=== PATIENT | female | born 1965 | race Caucasian/White ===

== ENCOUNTER 2019-04-09 09:11 | Inpatient (IN) | payer MEDICAID ==
[~2019-04-09] VITALS: Ht 162.6 cm; Wt 117.3 kg
[~2019-04-09 09:11] MED LIST: HYDR-4353 PO
[2019-04-09 10:04] LABS: BASOPHILS # (AUTO) 0.1 X10'3 (0-0.2); BASOPHILS % (AUTO) 0.6 % (0-1); EOSINOPHILS # (AUTO) 0.1 X10'3 (0-0.9); EOSINOPHILS % (AUTO) 0.4 % (0-6); HEMATOCRIT 45.5 % (35.0-45.0); HEMOGLOBIN 15.6 g/dl (12.0-16.0); LYMPHOCYTES # (AUTO) 2.2 X10'3 (1.1-4.8); LYMPHOCYTES % (AUTO) 13.4 % (21-51); MEAN CORPUSCULAR HGB CONC 34.3 g/dL (33.0-36.5); MEAN PLATELET VOLUME 8.1 FL (7.4-10.4); MONOCYTES # (AUTO) 1.3 X10'3 (0-0.9); MONOCYTES % (AUTO) 7.7 % (2-12); NEUTROPHILS % (AUTO) 77.9 % (42-75); PLATELET COUNT 239 X10'3 (140-440); RED BLOOD COUNT 4.74 X10'6 (4.20-5.60); RED CELL DISTRIBUTION WIDTH 13.4 % (11.5-14.5); WHITE BLOOD COUNT 16.6 X10'3 (4.5-11.0)
[2019-04-09 10:20] LABS: ALANINE AMINOTRANSFERASE 23 U/L (12-78); ALBUMIN 3.5 G/DL (3.4-5.0); ALBUMIN/GLOBULIN RATIO 0.8 (1.1-1.5); ALKALINE PHOSPHATASE 72 IU/L (46-116); AMYLASE 53 U/L (25-115); ANION GAP 12 (8-16); ASPARTATE AMINO TRANSFERASE 14 U/L (10-37); BILIRUBIN,TOTAL 0.8 MG/DL (0.1-1.0); BLOOD UREA NITROGEN 8 MG/DL (7-18); BUN/CREATININE RATIO 8.9 (6.6-38.0); CALCIUM 9.6 MG/DL (8.5-10.1); CHLORIDE 101 MMOL/L (99-107); GLUCOSE 110 MG/DL (70-104); LIPASE 143 U/L (73-393); POTASSIUM 3.4 MMOL/L (3.5-5.1); SODIUM 136 MMOL/L (135-145); TOTAL CARBON DIOXIDE 22.7 MMOL/L (24-32); TOTAL PROTEIN 8.1 G/DL (6.4-8.2); eGFR 66 ML/MIN
[2019-04-09] MEDS ORDERED: morphine 4 MG/ML inj SYRINge IV ONE ×2 (10:20→11:40)
[2019-04-09] MEDS ORDERED: ringers solution, lacted 1,000 ML IV ONE (10:35)
[2019-04-09 10:36] LABS: PARTIAL THROMBOPLASTIN TIME 32 SECONDS (22-32)
[2019-04-09] MEDS ORDERED: iohexol 300mg/ml 100ml inj. ONE (11:12)
--- NOTE | 2019-04-09 11:22 | NUR ---
Assumed care of pt. Awaiting CT results. VSS. Will continue to monitor.
[2019-04-09 12:01] LABS: CLARITY,URINE SLIGHTLY CLOUDY (Clear); GLUCOSE, URINE NEGATIVE (Neg); KETONES,URINE 40 mg/dl (Neg); LEUKOCYTE ESTERASE ,URINE NEGATIVE (Neg); NITRITES, URINE NEGATIVE (Neg); OCCULT BLOOD,URINE TRACE-LYSED (Neg); PH,URINE 5.5 (4.8-8.0); PROTEIN,URINE 30 mg/dl (Neg)
[2019-04-09 12:02] LABS: COLOR,URINE AMBER (Yellow); UA COLLECTION TYPE CLN CATCH MIDSTREAM
[2019-04-09 12:08] LABS: BACTERIA,URINE FEW /HPF (Neg); RBC,URINE 0-2 /HPF (0-2); WBC,URINE 0-4 /HPF (0-4)
[2019-04-09 12:09] LABS: AMORPHOUS URATES 1+; FINE GRANULAR CAST 0-3 /LPF (NEGATIVE); HYALINE CASTS 0-3 /LPF (NEGATIVE); MUCUS STRANDS MANY /LPF (Neg); SQUAMOUS EPITHELIAL CELL,UR FEW /LPF (FEW)
[2019-04-09] MEDS ORDERED: nitroGLYCERIN 0.4mg SUBLingual tab SL PRN (12:30)
[2019-04-09] MEDS ORDERED: piperacillin/tazo 3.375gm/50ml 50 ML IV ONE (12:55)
[2019-04-09] MEDS ORDERED: acetaminophen 325mg tablet PO PRN ×2 (13:50)
[2019-04-09] MEDS ORDERED: magnesium hydroxide 30ml (MOM) UD suspension PO PRN (13:50)
[2019-04-09] MEDS ORDERED: mag hydrox/Alum hydrox/simeth 30ml oral suspension PO PRN (13:50)
[2019-04-09] MEDS ORDERED: morphine 2 MG/ML inj. syringe IV PRN ×2 (13:50)
[2019-04-09] MEDS ORDERED: HYDROcodone/acetaminophen 5mg/325mg tablet PO PRN (13:50)
[2019-04-09] MEDS: normal saline 1000ml 1,000 ML IV SCH ×2 (14:08→23:49)
[2019-04-09] MEDS: HYDROcodone/acetaminophen 10/325mg tab PO PRN ×2 (14:10→18:15)
[2019-04-09] MEDS ORDERED: METO25TA6 PO (14:49)
[2019-04-09] MEDS ORDERED: RANI150C4 PO (14:49)
[2019-04-09] MEDS ORDERED: piperacillin/tazo 4.5gm/100ml 100 ML IV SCH (16:00)
--- NOTE | 2019-04-09 16:40 | NUR ---
Report received from ED RNMarily.
--- NOTE | 2019-04-09 18:15 | NUR ---
Problems reprioritized. Patient report given, questions answered & plan of care reviewed with FANNY Vela.
--- NOTE | 2019-04-09 18:35 | NUR ---
Received report from Victoria RN pt is awake and alert on RA, sitting in bedside chair
[2019-04-09 19:00] VITALS: BP 132/81
[2019-04-09] MEDS: famotidine 20mg tablet PO SCH (19:26)
[2019-04-09] MEDS: metoprolol tartrate 25mg tablet PO SCH (19:26)
[2019-04-09] MEDS: piperacillin/tazo 4.5gm/100ml 100 ML IV SCH (21:11)
[2019-04-09] MEDS: ondansetron/PF 4mg/2ml inj IV PRN (21:11)
[2019-04-10] VITALS: BP 115/72
[2019-04-10] MEDS: normal saline 1000ml 1,000 ML IV SCH ×2 (03:24→15:25)
[2019-04-10] MEDS: HYDROcodone/acetaminophen 10/325mg tab PO PRN ×4 (03:25→20:59)
[2019-04-10] MEDS: piperacillin/tazo 4.5gm/100ml 100 ML IV SCH ×3 (04:46→20:48)
[2019-04-10 06:01] LABS: BASOPHILS # (AUTO) 0.1 X10'3 (0-0.2); BASOPHILS % (AUTO) 0.5 % (0-1); EOSINOPHILS # (AUTO) 0.2 X10'3 (0-0.9); EOSINOPHILS % (AUTO) 1.9 % (0-6); HEMOGLOBIN 12.7 g/dl (12.0-16.0); LYMPHOCYTES # (AUTO) 1.8 X10'3 (1.1-4.8); LYMPHOCYTES % (AUTO) 18.4 % (21-51); MEAN CORPUSCULAR HGB CONC 34.4 g/dL (33.0-36.5); MEAN CORPUSCULAR VOLUME 95.9 FL (78-98); MEAN PLATELET VOLUME 8.3 FL (7.4-10.4); MONOCYTES # (AUTO) 0.8 X10'3 (0-0.9); NEUTROPHILS # (AUTO) 7.1 X10'3 (1.8-7.7); NEUTROPHILS % (AUTO) 71.2 % (42-75); PLATELET COUNT 221 X10'3 (140-440); RED BLOOD COUNT 3.85 X10'6 (4.20-5.60); RED CELL DISTRIBUTION WIDTH 13.6 % (11.5-14.5); WHITE BLOOD COUNT 9.9 X10'3 (4.5-11.0)
--- NOTE | 2019-04-10 06:27 | NUR ---
GAve report to Rebecca ESCOBEDO pt is awake and alert on RA requesting a shower later in no apparent distress,
[2019-04-10 06:56] LABS: ALBUMIN 2.7 G/DL (3.4-5.0); ANION GAP 13 (8-16); BLOOD UREA NITROGEN 7 MG/DL (7-18); BUN/CREATININE RATIO 9.2 (6.6-38.0); CALCIUM 8.3 MG/DL (8.5-10.1); CHLORIDE 105 MMOL/L (99-107); CREATININE 0.76 MG/DL (0.40-0.90); GLUCOSE 91 MG/DL (70-104); POTASSIUM 3.3 MMOL/L (3.5-5.1); SODIUM 142 MMOL/L (135-145); TOTAL CARBON DIOXIDE 24.5 MMOL/L (24-32); eGFR 80 ML/MIN
[2019-04-10 07:25] VITALS: BP 143/84
[2019-04-10] MEDS: metoprolol tartrate 25mg tablet PO SCH ×2 (07:55→19:39)
[2019-04-10] MEDS: famotidine 20mg tablet PO SCH ×2 (07:55→19:39)
[2019-04-10] MEDS: ondansetron/PF 4mg/2ml inj IV PRN (08:28)
--- NOTE | 2019-04-10 09:13 | NUR ---
Spoke with Dr Keane and received orders to discontinue tele monitoring. PCU senior estimator
[2019-04-10] MEDS ORDERED: potassium Cl 20 mEq SR tablet PO ONE (10:00)
[2019-04-10] MEDS: lactobacillus rhamnosus 10,000 MMU CELLS/CAPSULE PO SCH ×2 (10:55→19:39)
[2019-04-10 11:00] VITALS: BP 117/81
--- NOTE | 2019-04-10 13:28 | NUR ---
Pt admit with acute diverticulitis with microperforation. Pt seen at bedside provided with written and verbal diverticulitis nutrition therapy education with a list of fiber content in food. All of patient's questions were answered at this time. RD contact information provided. Pt currently on a full liquid diet documented with 0-25% PO intake. Pt states her abdominal pain is improving and is with no increase in pain following PO intake and that she currently is with nausea, receiving Zofran PRN which is helping per patient. Pt requests banana smoothie with dinner everette, d/w dietary. [facility] 04/09, pt states small BM yesterday morning however denies feeling constipated at this time. Will continue to follow. Recommendations: 1) Advance to low fiber diet as medically indicated 2) Monitor need for ONS 3) Monitor need for additional bowel care 4) Wt per rx Addendum: 04/10/19 at [address] Amended: Links added.
--- NOTE | 2019-04-10 18:10 | NUR ---
Problems reprioritized. Patient report given, questions answered & plan of care reviewed with FANNY Kee.
--- NOTE | 2019-04-10 18:15 | NUR ---
Received report from Rebecca ESCOBEDO pt is eating dinner visitors at bedside call light and items of freq use within reach.
[2019-04-10 19:00] VITALS: BP 140/80
[2019-04-11 00:15] VITALS: BP 138/71
[2019-04-11] MEDS: normal saline 1000ml 1,000 ML IV SCH (00:35)
[2019-04-11] MEDS ORDERED: temazepam 15mg capsule PO PRN (00:40)
[2019-04-11] MEDS: piperacillin/tazo 4.5gm/100ml 100 ML IV SCH (04:32)
[2019-04-11 05:37] LABS: ALBUMIN 2.6 G/DL (3.4-5.0); ANION GAP 12 (8-16); BLOOD UREA NITROGEN 6 MG/DL (7-18); BUN/CREATININE RATIO 7.6 (6.6-38.0); CALCIUM 8.6 MG/DL (8.5-10.1); CHLORIDE 110 MMOL/L (99-107); CREATININE 0.79 MG/DL (0.40-0.90); GLUCOSE 82 MG/DL (70-104); SODIUM 142 MMOL/L (135-145); TOTAL CARBON DIOXIDE 19.9 MMOL/L (24-32); eGFR 76 ML/MIN
[2019-04-11 06:12] LABS: BASOPHILS # (AUTO) 0.1 X10'3 (0-0.2); BASOPHILS % (AUTO) 0.8 % (0-1); EOSINOPHILS # (AUTO) 0.2 X10'3 (0-0.9); EOSINOPHILS % (AUTO) 3.3 % (0-6); HEMATOCRIT 38.6 % (35.0-45.0); LYMPHOCYTES # (AUTO) 1.2 X10'3 (1.1-4.8); LYMPHOCYTES % (AUTO) 17.4 % (21-51); MEAN CORPUSCULAR HEMOGLOBIN 32.4 PG (27.0-31.0); MEAN CORPUSCULAR HGB CONC 33.5 g/dL (33.0-36.5); MEAN CORPUSCULAR VOLUME 96.5 FL (78-98); MEAN PLATELET VOLUME 7.8 FL (7.4-10.4); MONOCYTES # (AUTO) 0.6 X10'3 (0-0.9); MONOCYTES % (AUTO) 8.8 % (2-12); NEUTROPHILS # (AUTO) 4.9 X10'3 (1.8-7.7); NEUTROPHILS % (AUTO) 69.7 % (42-75); PLATELET COUNT 257 X10'3 (140-440); RED CELL DISTRIBUTION WIDTH 13.7 % (11.5-14.5)
--- NOTE | 2019-04-11 06:16 | NUR ---
Gave report to Mesha ESCOBEDO pt is awake and alert on RA in no apparent distress, call light and items of freq use within reach.
[2019-04-11 07:14] VITALS: BP 142/88
[2019-04-11] MEDS: metoprolol tartrate 25mg tablet PO SCH (07:43)
[2019-04-11] MEDS: lactobacillus rhamnosus 10,000 MMU CELLS/CAPSULE PO SCH (07:43)
[2019-04-11] MEDS: famotidine 20mg tablet PO SCH (07:44)
[2019-04-11] MEDS: HYDROcodone/acetaminophen 10/325mg tab PO PRN (08:14)
[2019-04-11] MEDS ORDERED: HYDR-4383 PO (11:22)
[2019-04-11] MEDS ORDERED: METR-159 PO (11:22)
[2019-04-11] MEDS ORDERED: LEVO500T2 PO (11:22)
[2019-04-11 11:38] VITALS: BP 143/91
--- NOTE | 2019-04-11 13:10 | NUR ---
Pt discharged home with . IV taken out, no tele. All belongings taken from room. Pt will f/u with pcp for follow up ct scan. Pt appropriate to be discharged at this time and wants to go home. Gina delivered meds.
== END 2019-04-11 13:12 | disposition home or self-care (01) | DRG 244 ==
LOC: ER 09:12 → SUR 3N 17:00
PROVIDERS: ADMIT Internal Medicine; ATTEND Internal Medicine
PROC: BW211ZZ Computerized Tomography (CT Scan) of Abdomen and Pelvis using Low Osmolar Contrast (ICD-10-PCS; principal; 2019-04-09)
DX: K57.20 Diverticulitis of large intestine with perforation and abscess without bleeding (principal); E66.01 Morbid (severe) obesity due to excess calories; E87.6 Hypokalemia; I10 Essential (primary) hypertension; K21.9 Gastro-esophageal reflux disease without esophagitis; F17.210 Nicotine dependence, cigarettes, uncomplicated; R00.0 Tachycardia, unspecified; F41.9 Anxiety disorder, unspecified; R03.0 Elevated blood-pressure reading, without diagnosis of hypertension; Z68.41 Body mass index [BMI] 40.0-44.9, adult; Z90.49 Acquired absence of other specified parts of digestive tract; Z83.3 Family history of diabetes mellitus
CPT/HCPCS: 36415; 71045; 74177; 80048; 80053; 81001; 82150; 83605; 83690; 84484; 85025; 85610; 85730; 87081; 93005; 96365; 96375; 96376; 99285; G0378; J2270; J2405; J2543; J7030; J7120; Q9967

== ENCOUNTER 2019-04-26 10:44 | Emergency (ER) | payer MEDICAID ==
[~2019-04-26] VITALS: Ht 162.6 cm; Wt 115.1 kg
[~2019-04-26 10:44] MED LIST changes: -HYDR-4353 PO; +HYDR-4383 PO; +LEVO500T2 PO; +METO25TA6 PO; +METR-159 PO; +RANI150C4 PO
[2019-04-26] MEDS ORDERED: normal saline 1000ML IV soln IVB ONE (11:35)
[2019-04-26] MEDS ORDERED: fentaNYL/PF 50MCG/1 ML 2ML syringe IV ONE (11:35)
[2019-04-26] MEDS ORDERED: ondansetron/PF 4mg/2ml inj IV ONE (11:35)
[2019-04-26 12:12] LABS: BASOPHILS # (AUTO) 0.1 X10'3 (0-0.2); BASOPHILS % (AUTO) 1.5 % (0-1); EOSINOPHILS # (AUTO) 0.1 X10'3 (0-0.9); EOSINOPHILS % (AUTO) 0.9 % (0-6); HEMOGLOBIN 16.9 g/dl (12.0-16.0); LYMPHOCYTES # (AUTO) 1.9 X10'3 (1.1-4.8); LYMPHOCYTES % (AUTO) 21.7 % (21-51); MEAN CORPUSCULAR HEMOGLOBIN 32.3 PG (27.0-31.0); MEAN CORPUSCULAR HGB CONC 34.5 g/dL (33.0-36.5); MEAN CORPUSCULAR VOLUME 93.6 FL (78-98); MEAN PLATELET VOLUME 7.8 FL (7.4-10.4); MONOCYTES # (AUTO) 0.7 X10'3 (0-0.9); MONOCYTES % (AUTO) 7.6 % (2-12); NEUTROPHILS # (AUTO) 5.9 X10'3 (1.8-7.7); NEUTROPHILS % (AUTO) 68.3 % (42-75); PLATELET COUNT 466 X10'3 (140-440); RED BLOOD COUNT 5.23 X10'6 (4.20-5.60); RED CELL DISTRIBUTION WIDTH 13.4 % (11.5-14.5); WHITE BLOOD COUNT 8.6 X10'3 (4.5-11.0)
[2019-04-26 12:27] LABS: ALANINE AMINOTRANSFERASE 42 U/L (12-78); ALBUMIN/GLOBULIN RATIO 0.9 (1.1-1.5); ALKALINE PHOSPHATASE 70 IU/L (46-116); ANION GAP 9 (8-16); ASPARTATE AMINO TRANSFERASE 24 U/L (10-37); BILIRUBIN,TOTAL 0.3 MG/DL (0.1-1.0); BLOOD UREA NITROGEN 7 MG/DL (7-18); BUN/CREATININE RATIO 7.3 (6.6-38.0); CALCIUM 9.9 MG/DL (8.5-10.1); CHLORIDE 103 MMOL/L (99-107); CREATININE 0.96 MG/DL (0.40-0.90); GLUCOSE 109 MG/DL (70-104); LIPASE 251 U/L (73-393); SODIUM 139 MMOL/L (135-145); TOTAL CARBON DIOXIDE 26.7 MMOL/L (24-32); TOTAL PROTEIN 8.3 G/DL (6.4-8.2); eGFR 61 ML/MIN
[2019-04-26 12:50] LABS: CLARITY,URINE CLEAR (Clear); COLOR,URINE YELLOW (Yellow); GLUCOSE, URINE NEGATIVE (Neg); KETONES,URINE NEGATIVE (Neg); LEUKOCYTE ESTERASE ,URINE NEGATIVE (Neg); NITRITES, URINE NEGATIVE (Neg); OCCULT BLOOD,URINE NEGATIVE (Neg); PH,URINE 5.5 (4.8-8.0); PROTEIN,URINE NEGATIVE (Neg); UROBILINOGEN,URINE 0.2 E.U/dL (0.2-1.0)
[2019-04-26 12:51] LABS: UA COLLECTION TYPE CLN CATCH MIDSTREAM
[2019-04-26] MEDS ORDERED: SACC250C PO (13:11)
[2019-04-26] MEDS ORDERED: TRAM50TA2 PO (13:11)
[2019-04-26] MEDS ORDERED: AMOX-422 PO (13:11)
[2019-04-26 13:37] VITALS: BP 110/60
== END 2019-04-26 13:44 | disposition home or self-care (01) ==
LOC: ER 10:44
DX: K57.92 Diverticulitis of intestine, part unspecified, without perforation or abscess without bleeding (principal); I10 Essential (primary) hypertension; K21.9 Gastro-esophageal reflux disease without esophagitis; F41.9 Anxiety disorder, unspecified; Z87.891 Personal history of nicotine dependence; Z79.899 Other long term (current) drug therapy
CPT/HCPCS: 36415; 80053; 81003; 83690; 85025; 96374; 96375; 99283; J2405; J3010; J7030

== ENCOUNTER 2019-08-01 10:15 | Emergency (ER) | payer MEDICAID ==
[~2019-08-01] VITALS: Ht 162.6 cm; Wt 106.0 kg
[~2019-08-01 10:15] MED LIST changes: -LEVO500T2 PO; -METR-159 PO; +SACC250C PO
[2019-08-01] MEDS ORDERED: aspirin 81mg tab.chew PO ONE (10:40)
[2019-08-01 11:06] LABS: BASOPHILS # (AUTO) 0.1 X10'3 (0-0.2); BASOPHILS % (AUTO) 1.2 % (0-1); EOSINOPHILS # (AUTO) 0.2 X10'3 (0-0.9); HEMATOCRIT 49.2 % (35.0-45.0); HEMOGLOBIN 16.9 g/dl (12.0-16.0); LYMPHOCYTES # (AUTO) 3.3 X10'3 (1.1-4.8); LYMPHOCYTES % (AUTO) 38.7 % (21-51); MEAN CORPUSCULAR HEMOGLOBIN 31.9 PG (27.0-31.0); MEAN CORPUSCULAR HGB CONC 34.4 g/dL (33.0-36.5); MEAN CORPUSCULAR VOLUME 92.7 FL (78-98); MEAN PLATELET VOLUME 8.5 FL (7.4-10.4); MONOCYTES # (AUTO) 0.7 X10'3 (0-0.9); MONOCYTES % (AUTO) 8.6 % (2-12); NEUTROPHILS # (AUTO) 4.2 X10'3 (1.8-7.7); NEUTROPHILS % (AUTO) 49.5 % (42-75); PLATELET COUNT 315 X10'3 (140-440); RED BLOOD COUNT 5.31 X10'6 (4.20-5.60); RED CELL DISTRIBUTION WIDTH 13.3 % (11.5-14.5); WHITE BLOOD COUNT 8.5 X10'3 (4.5-11.0)
[2019-08-01 11:22] LABS: ALANINE AMINOTRANSFERASE 31 U/L (12-78); ALBUMIN 4.2 G/DL (3.4-5.0); ALKALINE PHOSPHATASE 86 IU/L (46-116); ANION GAP 12 (8-16); ASPARTATE AMINO TRANSFERASE 16 U/L (10-37); BILIRUBIN,TOTAL 0.4 MG/DL (0.1-1.0); BLOOD UREA NITROGEN 9 MG/DL (7-18); BUN/CREATININE RATIO 9.1 (6.6-38.0); CALCIUM 9.8 MG/DL (8.5-10.1); CHLORIDE 103 MMOL/L (99-107); CREATININE 0.99 MG/DL (0.40-0.90); GLUCOSE 103 MG/DL (70-104); POTASSIUM 3.4 MMOL/L (3.5-5.1); SODIUM 140 MMOL/L (135-145); TOTAL PROTEIN 8.4 G/DL (6.4-8.2); eGFR 59 ML/MIN
--- NOTE | 2019-08-01 11:26 | NUR ---
PT C/C CHANGED TO CP FROM ASTHMA. PT DENIES ANY HX OF ASTHMA
[2019-08-01 11:28] LABS: MAGNESIUM 1.8 MG/DL (1.5-2.4)
[2019-08-01 12:14] VITALS: BP 115/84
== END 2019-08-01 12:14 | disposition home or self-care (01) ==
LOC: ER 10:16
DX: R07.89 Other chest pain (principal); R06.02 Shortness of breath; R20.0 Anesthesia of skin; I10 Essential (primary) hypertension; K21.9 Gastro-esophageal reflux disease without esophagitis; F41.9 Anxiety disorder, unspecified; F10.99 Alcohol use, unspecified with unspecified alcohol-induced disorder; Z79.899 Other long term (current) drug therapy; Y90.9 Presence of alcohol in blood, level not specified
CPT/HCPCS: 36415; 71045; 80053; 83735; 83880; 84484; 85025; 93005; 99284

== ENCOUNTER 2022-09-03 09:48 | Emergency (ER) | payer MEDICAID ==
[~2022-09-03] VITALS: Ht 162.6 cm; Wt 113.2 kg
[~2022-09-03 09:48] MED LIST changes: +LOP25T PO; -METO25TA6 PO
[2022-09-03 10:08] LABS: BASOPHILS # (AUTO) 0.1 X10'3 (0-0.2); BASOPHILS % (AUTO) 1.1 % (0-1); EOSINOPHILS # (AUTO) 0.2 X10'3 (0-0.9); EOSINOPHILS % (AUTO) 2.3 % (0-6); HEMATOCRIT 48.7 % (35.0-45.0); HEMOGLOBIN 16.5 g/dl (12.0-16.0); LYMPHOCYTES # (AUTO) 3.2 X10'3 (1.1-4.8); LYMPHOCYTES % (AUTO) 38.9 % (21-51); MEAN CORPUSCULAR HGB CONC 33.9 g/dL (33.0-36.5); MEAN CORPUSCULAR VOLUME 97.2 FL (78-98); MEAN PLATELET VOLUME 8.4 FL (7.4-10.4); MONOCYTES # (AUTO) 0.6 X10'3 (0-0.9); MONOCYTES % (AUTO) 7.6 % (2-12); NEUTROPHILS # (AUTO) 4.1 X10'3 (1.8-7.7); NEUTROPHILS % (AUTO) 50.1 % (42-75); PLATELET COUNT 302 X10'3 (140-440); RED BLOOD COUNT 5.01 X10'6 (4.20-5.60); RED CELL DISTRIBUTION WIDTH 12.4 % (11.5-14.5); WHITE BLOOD COUNT 8.1 X10'3 (4.5-11.0)
[2022-09-03 10:25] LABS: ALANINE AMINOTRANSFERASE 40 U/L (12-78); ALBUMIN/GLOBULIN RATIO 1.1 (1.1-1.5); ALKALINE PHOSPHATASE 58 IU/L (46-116); ANION GAP 10 (8-16); ASPARTATE AMINO TRANSFERASE 24 U/L (10-37); BILIRUBIN,TOTAL 0.4 MG/DL (0.1-1.0); BLOOD UREA NITROGEN 12 MG/DL (7-18); BUN/CREATININE RATIO 11.7 (6.6-38.0); CALCIUM 9.3 MG/DL (8.5-10.1); CHLORIDE 103 MMOL/L (99-107); CREATININE 1.03 MG/DL (0.40-0.90); GLUCOSE 132 MG/DL (70-104); MAGNESIUM 1.8 MG/DL (1.5-2.4); SODIUM 139 MMOL/L (135-145); TOTAL CARBON DIOXIDE 25.9 MMOL/L (24-32); TOTAL PROTEIN 7.6 G/DL (6.4-8.2); eGFR 56 ML/MIN
[2022-09-03 14:26] VITALS: BP 156/102
== END 2022-09-03 14:42 | disposition home or self-care (01) ==
LOC: ER 09:49
DX: R07.89 Other chest pain (principal); T44.7X5A Adverse effect of beta-adrenoreceptor antagonists, initial encounter; F19.239 Other psychoactive substance dependence with withdrawal, unspecified; I10 Essential (primary) hypertension; K21.9 Gastro-esophageal reflux disease without esophagitis; F41.9 Anxiety disorder, unspecified; Z72.89 Other problems related to lifestyle; Z79.899 Other long term (current) drug therapy; Y92.89 Other specified places as the place of occurrence of the external cause
CPT/HCPCS: 36415; 71045; 80053; 83735; 83880; 84484; 85025; 93005; 99285